=== PATIENT | male | born 1970 | race African-American/Black ===

== ENCOUNTER 2020-12-15 18:36 | Emergency (ER) | payer BC ==
[~2020-12-15] VITALS: Ht 182.9 cm; Wt 74.8 kg
[2020-12-15] MEDS ORDERED: ALBUTEROL2.5 MG/0.1 INH (18:47)
[2020-12-15] MEDS ORDERED: PREDNISONE 5 MG5 M1 PO (18:47)
[2020-12-15] MEDS ORDERED: HYDROXYZINE HCL50 MG PO (18:48)
[2020-12-15] MEDS ORDERED: ONDANSETRON HCL4 M2 PO (20:23)
[2020-12-15] MEDS ORDERED: OMEPRAZOLE 20 M20 M1 PO (20:23)
[2020-12-15 21:47] VITALS: BP 164/102
== END 2020-12-15 21:47 | disposition home or self-care (01) ==
LOC: ER 18:36
DX: K52.9 Noninfective gastroenteritis and colitis, unspecified (principal); R11.2 Nausea with vomiting, unspecified; Z20.822 Contact with and (suspected) exposure to COVID-19; Z79.899 Other long term (current) drug therapy; Z88.1 Allergy status to other antibiotic agents